=== PATIENT | male | born 1985 | race Caucasian/White ===

== ENCOUNTER 2016-12-14 04:28 | Inpatient (IN) | payer MEDICARE, MEDICAID ==
[2016-12-14] MEDS ORDERED: SEROQUEL XR150 M1 PO (04:54)
[2016-12-14] MEDS ORDERED: FISH OIL300 M1 PO (04:55)
[2016-12-14] MEDS ORDERED: KLONOPIN0.5 M1 PO (04:55)
[2016-12-14] MEDS ORDERED: CYMBALTA60 M1 PO (04:56)
[2016-12-14] MEDS ORDERED: FOLIC ACID1 M1 PO (04:57)
[2016-12-14] MEDS ORDERED: CYCLOBENZAPRINE10 M1 PO (04:57)
[2016-12-14] MEDS ORDERED: OXYCODONE HCL5 M1 PO (04:58)
[2016-12-14 05:42] LABS: URINE BILIRUBIN NEGATIVE (NEG); URINE BLOOD NEGATIVE (NEG); URINE GLUCOSE (UA) NEGATIVE (NEG); URINE KETONE NEGATIVE (NEG); URINE LEUKOCYTE ESTERASE NEGATIVE (NEG); URINE NITRITE POSITIVE (NEG); URINE PROTEIN NEGATIVE (NEG); URINE SPECIFIC GRAVITY 1.005 (1.003-1.030)
[2016-12-14 05:44] LABS: URINE APPEARANCE CLEAR; URINE COLOR YELLOW
[2016-12-14 05:49] LABS: BASO % 0.3 % (0-2); EOS % 1.7 % (0-7); EOSINOPHIL ABSOLUTE COUNT 0.1 tho/cmm (0.0-0.7); HCT-HEMATOCRIT 41.8 % (36.0-53.5); HGB-HEMOGLOBIN 13.9 gm/dl (13.5-17.0); IMMATURE GRANULOCYTES ABSOLUTE 0.01 tho/cmm (0-0.03); IMMATURE GRANULOCYTES PERCENT 0.2 % (0-0.3); LYMPH % 25.3 % (20-45); LYMPH ABSOLUTE COUNT 1.7 tho/cmm (0.8-4.5); MCH (MEAN CORPUSCULAR HGB) 30.1 pg (28.0-32.0); MCHC MEAN CORPUSCULAR HGB CONC 33.3 % (32.0-36.0); MCV (MEAN CELL VOLUME) 90.5 fl (82.0-96.0); MEAN PLATELET VOLUME 12.1 cmc (9.4-12.4); MONO % 4.2 % (0-12); MONOCYTE ABSOLUTE COUNT 0.3 tho/cmm (0.0-1.2); NEUTROPHIL ABSOLUTE COUNT 4.5 tho/cmm (1.6-8.0); NEUTROPHIL-AUTOMATED 4.5 tho/cmm (1.6-8.0); NEUTROPHILS % 68.3 % (40-80); RED BLOOD COUNT 4.62 mil/cmm (4.40-5.70); WHITE BLOOD COUNT 6.6 tho/cmm (4.0-10.0)
[2016-12-14 05:55] LABS: URINE BACTERIA 2+; URINE EPITHELIAL CELLS RARE /[HPF] (0-10); URINE RBC 0 /[HPF] (0-5); URINE WBC 0 /[HPF] (0-5)
[2016-12-14 06:11] LABS: ALB/GLOB RATIO 1.2 (0.8-2.0); ALBUMIN 4.1 g/dl (3.5-5.0); ALKALINE PHOSPHATASE 112 U/L (33-138); ALT/SGPT 25 U/L (12-78); BILIRUBIN,TOTAL 0.9 mg/dl (0.0-1.5); BLOOD UREA NITROGEN 18 mg/dl (6-24); CARBON DIOXIDE-VENOUS 29 mmol/L (22-32); CHLORIDE 98 mmol/l (96-110); CREATININE 1.74 mg/dl (0.60-1.30); GLUCOSE 104 mg/dL (70-110); SODIUM 137 mmol/L (135-145); eGFR VALUE FOR BLACK 59 mL/Min
[2016-12-14 06:22] LABS: ANION GAP 14 mmol/L (0-20); AST/SGOT 41 U/L (10-40); POTASSIUM 3.7 mmol/L (3.7-5.1)
[2016-12-14 07:05] LABS: PROCALCITONIN 0.78 ng/ml (0.05-0.09)
[2016-12-14 07:09] LABS: PLATELET COUNT 52 tho/cmm (150-450)
[2016-12-14 11:32] LABS: ABG CO2 ARTERIAL 25 mmol/L (21-27); ARTERIAL BLD GAS O2 SATURATION 94 % (95-98); ARTERIAL BLOOD GAS PCO2 40 mmHg (32-45); ARTERIAL PO2 73 mmHg (70-100); BICARBONATE 23 mmol/L (21-28); BLOOD GAS BASE EXCESS -1 mM/L (-/+3); PH 7.38 Units (7.35-7.45)
[2016-12-15 03:42] LABS: BASO % 0.3 % (0-2); EOS % 1.9 % (0-7); EOSINOPHIL ABSOLUTE COUNT 0.2 tho/cmm (0.0-0.7); HCT-HEMATOCRIT 38.6 % (36.0-53.5); HGB-HEMOGLOBIN 12.9 gm/dl (13.5-17.0); IMMATURE GRANULOCYTES ABSOLUTE 0.02 tho/cmm (0-0.03); IMMATURE GRANULOCYTES PERCENT 0.3 % (0-0.3); LYMPH ABSOLUTE COUNT 1.3 tho/cmm (0.8-4.5); MCHC MEAN CORPUSCULAR HGB CONC 33.4 % (32.0-36.0); MCV (MEAN CELL VOLUME) 89.8 fl (82.0-96.0); MEAN PLATELET VOLUME 11.3 cmc (9.4-12.4); MONO % 8.2 % (0-12); MONOCYTE ABSOLUTE COUNT 0.7 tho/cmm (0.0-1.2); NEUTROPHIL ABSOLUTE COUNT 5.8 tho/cmm (1.6-8.0); NEUTROPHIL-AUTOMATED 5.8 tho/cmm (1.6-8.0); NEUTROPHILS % 73.3 % (40-80); RED CELL DISTRIBUTION WIDTH 14.2 % (12.4-16.4); WHITE BLOOD COUNT 7.9 tho/cmm (4.0-10.0)
[2016-12-15 04:01] LABS: ANION GAP 12 mmol/L (0-20); BLOOD UREA NITROGEN 9 mg/dl (6-24); CARBON DIOXIDE-VENOUS 25 mmol/L (22-32); CHLORIDE 106 mmol/l (96-110); CREATININE 1.39 mg/dl (0.60-1.30); GLUCOSE 107 mg/dL (70-110); POTASSIUM 3.5 mmol/L (3.7-5.1); SODIUM 139 mmol/L (135-145); eGFR VALUE FOR BLACK 77 mL/Min
[2016-12-15 04:17] LABS: PLATELET COUNT 161 tho/cmm (150-450)
[2016-12-15] MEDS ORDERED: AMBIEN10 M1 PO (16:28)
[2016-12-15] MEDS ORDERED: QUETIAPINE FUM300 M1 PO (16:28)
[2016-12-15] MEDS ORDERED: LATUDA80 M1 PO (16:28)
[2016-12-15] MEDS ORDERED: QUETIAPINE FUMA50 M1 PO (16:28)
[2016-12-16 05:19] LABS: WHITE BLOOD COUNT 6.7 tho/cmm (4.0-10.0)
[2016-12-16 05:58] LABS: PROCALCITONIN 0.41 ng/ml (0.05-0.09)
[2016-12-16 10:10] LABS: ANION GAP 14 mmol/L (0-20); BLOOD UREA NITROGEN 6 mg/dl (6-24); CALCIUM 8.4 mg/dl (8.5-10.5); CARBON DIOXIDE-VENOUS 23 mmol/L (22-32); CHLORIDE 110 mmol/l (96-110); CREATININE 1.19 mg/dl (0.60-1.30); GLUCOSE 157 mg/dL (70-110); POTASSIUM 4.2 mmol/L (3.7-5.1); SODIUM 143 mmol/L (135-145); eGFR VALUE FOR BLACK >90 mL/Min
[2016-12-16] MEDS ORDERED: BACTRIM DS TAB1 EAC2 PO (14:58)
[2016-12-16] MEDS ORDERED: TYLENOL325 M2 PO (15:14)
== END 2016-12-16 15:45 | DRG 602 ==
LOC: EDMED 04:28 → EMR2 08:06 → 5WE 16:30
PROVIDERS: Emergency Medicine; Family Medicine; Hospitalist; ADMIT Hospitalist
PROC: 02HV33Z Insertion of Infusion Device into Superior Vena Cava, Percutaneous Approach (ICD-10-PCS; principal; 2016-12-14)
DX: L03.116 Cellulitis of left lower limb (principal); G93.40 Encephalopathy, unspecified; N17.9 Acute kidney failure, unspecified; N39.0 Urinary tract infection, site not specified; L03.115 Cellulitis of right lower limb; F41.9 Anxiety disorder, unspecified; G89.4 Chronic pain syndrome
CPT/HCPCS: C1751; G0480; J0456; J0696; J1956; J2543; J3370; J7030; J7050